=== PATIENT | female | born 1965 | race African-American/Black ===

== ENCOUNTER 2023-08-08 11:45 | Inpatient (IN) | payer MEDICARE, MEDICAID ==
[~2023-08-08] VITALS: Ht 162.6 cm; Wt 51.7 kg
[~2023-08-08 11:45] MED LIST: AMLO10TA80 PO; ASPI-1406 MT; ATOR40TA70 MT; CALC667C MT; CARV25TA47 MT; CHOL100046 PO; HYDR100T26 MT; PANT40TA51 MT; SITA25TA3 MT; [UNRECOGNIZED DRUG - CODE] PO
[2023-08-08] MEDS ORDERED: HYDRALAZINE 20MG/ML VIAL IV ONE (12:15)
[2023-08-08 13:22] LABS: BASOPHILS % 0.7 % (0.0-2.0); EOSINOPHILS % 0.5 % (0.0-5.0); HEMATOCRIT. 38.8 % (36.0-48.0); HEMOGLOBIN. 12.8 g/dL (12.0-16.0); LYMPHOCYTES % 21.9 % (20.0-50.0); MEAN CORPUSCULAR HEMOGLOBIN 32.3 pg (28.0-32.0); MEAN CORPUSCULAR HGB CONC 32.9 g/dL (31.0-37.0); MEAN PLATELET VOLUME 8.3 fl (7.4-10.4); MONOCYTES % 10.2 % (2.0-8.0); NEUTROPHILS % 66.7 % (40.0-76.0); PLATELET 121 x1000/uL (130-400); RED BLOOD CELL COUNT 3.96 mill/uL (4.2-5.4); RED CELL DISTRIBUTION WIDTH 16.6 % (11.6-14.6); WHITE BLOOD COUNT 3.5 x1000/uL (4.5-11.0)
[2023-08-08 13:27] LABS: INR 1.1
[2023-08-08 13:31] LABS: ALANINE AMINOTRANSFERASE < 7 IU/L (10-49); ALBUMIN 3.9 g/dL (3.2-4.8); ASPARTATE AMINOTRANSFERASE 17 IU/L (<34); BILIRUBIN TOTAL 0.4 mg/dL (0.1-1.0); CARBON DIOXIDE 24 mEq/L (21-32); CHLORIDE 101 mEq/L (98-107); GLUCOSE 94 mg/dL (70-105); POTASSIUM 3.4 mEq/L (3.5-5.1); PROTEIN TOTAL 7.8 g/dL (6.0-8.3); SODIUM 136 mEq/L (136-145); UREA NITROGEN BLOOD 13 mg/dL (9-23)
[2023-08-08 13:35] LABS: CREATININE 6.3 mg/dL (0.6-1.0)
[2023-08-08 13:36] LABS: TROPONIN I HIGH SENSITIVITY 60 ng/L (3.0-34)
[2023-08-08] MEDS: MORPHINE SULFATE 4 MG/ML INJ (FOR IV/IM USE) IM ONE (13:49)
[2023-08-08] MEDS: CLONIDINE 0.1MG TABLET PO ONE (14:09)
[2023-08-08] MEDS ORDERED: NITROGLYCERIN OINT 1GM/INCH UDPKT TD ONE (14:15)
[2023-08-08] MEDS: HYDRALAZINE 20MG/ML VIAL IV NR (14:30)
[2023-08-08] MEDS: ONDANSETRON HCL 4MG/2ML INJ IV ONE (14:30)
[2023-08-09] MEDS ORDERED: HYDRALAZINE HCL 10MG TABLET PO PRN (08:30)
[2023-08-09] MEDS: AMLODIPINE 5MG TABLET PO SCH (09:25)
[2023-08-09] MEDS: HYDRALAZINE HCL 100MG TABLET PO SCH (09:25)
[2023-08-09 11:05] LABS: TROPONIN I HIGH SENSITIVITY 72 ng/L (3.0-34)
[2023-08-09] MEDS: ONDANSETRON HCL 4MG/2ML INJ IV PRN (12:02)
[2023-08-09] MEDS: HYDRALAZINE 20MG/ML VIAL IV PRN (12:02)
[2023-08-09 14:50] VITALS: BP 159/96; PULSE 106; RESP 20; TEMP 96.1
[2023-08-09 16:00] VITALS: BP 191/104; PULSE 101; RESP 20; TEMP 97.6
[2023-08-09 17:45] VITALS: BP 169/94
[2023-08-09 18:57] LABS: HEPATITIS A AB IGM NEGATIVE (Negative); HEPATITIS B CORE AB IGM NEGATIVE (Negative); HEPATITIS B SURFACE ANTIGEN NEGATIVE (Negative); HEPATITIS C AB NON REACTIVE (Neg) (Negative)
[2023-08-09 20:00] VITALS: BP 163/82; PULSE 91; RESP 17; TEMP 97.9
[2023-08-10] VITALS (12 sets, daily range): BP systolic 83–165; BP diastolic 48–85; PULSE 77–108; RESP 18–24; TEMP 97.7–98.2
[2023-08-10 06:38] LABS: BASOPHILS % 0.4 % (0.0-2.0); HEMATOCRIT. 43.3 % (36.0-48.0); HEMOGLOBIN. 14.1 g/dL (12.0-16.0); LYMPHOCYTES % 12.3 % (20.0-50.0); MEAN CORPUSCULAR HEMOGLOBIN 32.5 pg (28.0-32.0); MEAN CORPUSCULAR HGB CONC 32.6 g/dL (31.0-37.0); MEAN CORPUSCULAR VOLUME 99.7 fL (81.0-99.0); MEAN PLATELET VOLUME 8.8 fl (7.4-10.4); MONOCYTES % 5.4 % (2.0-8.0); NEUTROPHILS % 81.9 % (40.0-76.0); PLATELET 131 x1000/uL (130-400); RED BLOOD CELL COUNT 4.35 mill/uL (4.2-5.4); RED CELL DISTRIBUTION WIDTH 17.2 % (11.6-14.6)
[2023-08-10 07:00] LABS: CALCIUM 12.6 mg/dL (8.7-10.4); CREATININE 8.9 mg/dL (0.6-1.0); POTASSIUM 4.3 mEq/L (3.5-5.1)
[2023-08-10] MEDS: AMLODIPINE 10MG TABLET PO SCH (09:14)
[2023-08-10] MEDS ORDERED: HYDRALAZINE 20MG/ML VIAL IV PRN (16:45)
[2023-08-10] MEDS ORDERED: HYDRALAZINE HCL 25MG TABLET PO SCH (22:00)
[2023-08-10] MEDS ORDERED: MORPHINE SULFATE 2 MG/ML CPJ (NOT FOR IM USE) IV NR (23:30)
[2023-08-11 00:25] VITALS: BP 156/72; PULSE 90; RESP 18; TEMP 98
[2023-08-11 04:00] VITALS: BP 152/99; PULSE 101; RESP 18; TEMP 98
[2023-08-11 08:00] VITALS: BP 136/99; PULSE 88; RESP 18; TEMP 97.9
[2023-08-11 12:00] VITALS: BP 189/94; PULSE 89; RESP 18; TEMP 96.5
[2023-08-11 16:00] VITALS: BP 145/68; PULSE 82; RESP 18; TEMP 97.7
[2023-08-11 17:53] LABS: HEPATITIS A AB IGM NEGATIVE (Negative); HEPATITIS B CORE AB IGM NEGATIVE (Negative); HEPATITIS B SURFACE ANTIGEN NEGATIVE (Negative); HEPATITIS C AB NON REACTIVE (Neg) (Negative)
[2023-08-11 20:00] VITALS: BP 149/75; PULSE 92; RESP 18; TEMP 97.8
[2023-08-12] VITALS (9 sets, daily range): BP systolic 110–197; BP diastolic 53–85; PULSE 81–100; RESP 16–22; TEMP 96.5–97.8
[2023-08-12] MEDS: CALCIUM CARBONATE 500MG TABLET CHEW PO PRN (01:06)
[2023-08-12 07:16] LABS: BASOPHILS % 0.2 % (0.0-2.0); HEMOGLOBIN. 11.6 g/dL (12.0-16.0); LYMPHOCYTES % 17.6 % (20.0-50.0); MEAN CORPUSCULAR HEMOGLOBIN 32.7 pg (28.0-32.0); MEAN CORPUSCULAR HGB CONC 33.2 g/dL (31.0-37.0); MEAN CORPUSCULAR VOLUME 98.6 fL (81.0-99.0); MEAN PLATELET VOLUME 8.5 fl (7.4-10.4); MONOCYTES % 11.8 % (2.0-8.0); NEUTROPHILS % 70.4 % (40.0-76.0); PLATELET 168 x1000/uL (130-400); RED BLOOD CELL COUNT 3.55 mill/uL (4.2-5.4); RED CELL DISTRIBUTION WIDTH 17.2 % (11.6-14.6); WHITE BLOOD COUNT 4.1 x1000/uL (4.5-11.0)
[2023-08-12 07:32] LABS: CALCIUM 11.8 mg/dL (8.7-10.4); POTASSIUM 4.3 mEq/L (3.5-5.1)
[2023-08-12 07:35] LABS: CREATININE 8.4 mg/dL (0.6-1.0)
[2023-08-12] MEDS: ISOSORBIDE DINITRATE 20MG TABLET PO SCH (18:45)
[2023-08-12] MEDS: CARVEDILOL 6.25 MG TABLET PO SCH (21:17)
[2023-08-13] VITALS (9 sets, daily range): BP systolic 112–184; BP diastolic 54–79; PULSE 74–99; RESP 18–20; TEMP 96.9–98
[2023-08-13] MEDS: ACETAMINOPHEN 325MG TABLET PO PRN (18:13)
[2023-08-14] VITALS (7 sets, daily range): BP systolic 128–149; BP diastolic 54–71; PULSE 73–85; RESP 17–20; TEMP 97.1–98.4; O2SAT 100
[2023-08-15] VITALS: BP 149/62; PULSE 74; RESP 17; TEMP 97.5
[2023-08-15 04:00] VITALS: BP 154/63; PULSE 82; RESP 19; TEMP 97.8
[2023-08-15 07:48] LABS: HEMOGLOBIN. 10.8 g/dL (12.0-16.0); MEAN CORPUSCULAR HGB CONC 34.7 g/dL (31.0-37.0); MEAN CORPUSCULAR VOLUME 97.9 fL (81.0-99.0); MEAN PLATELET VOLUME 8.6 fl (7.4-10.4); PLATELET 173 x1000/uL (130-400); RED BLOOD CELL COUNT 3.17 mill/uL (4.2-5.4); RED CELL DISTRIBUTION WIDTH 16.8 % (11.6-14.6); WHITE BLOOD COUNT 4.4 x1000/uL (4.5-11.0)
[2023-08-15 07:52] LABS: DIFFERENTIAL COMMENT 1
[2023-08-15 08:00] VITALS: BP_SYST 133; BP_SYST 161; BP_DIAS 68; BP_DIAS 76; PULSE 73; PULSE 76; RESP 20; TEMP 97.6; TEMP 98.6
[2023-08-15 08:56] LABS: CALCIUM 9.7 mg/dL (8.7-10.4); POTASSIUM 4.6 mEq/L (3.5-5.1)
[2023-08-15 12:00] VITALS: BP 132/46; PULSE 80; RESP 20; TEMP 97.6
[2023-08-15 16:36] LABS: ANISOCYTOSIS 1+; PLATELET ESTIMATE NORMAL
[2023-08-15 17:22] LABS: HEPATITIS A AB IGM NEGATIVE (Negative); HEPATITIS B CORE AB IGM NEGATIVE (Negative); HEPATITIS B SURFACE ANTIGEN NEGATIVE (Negative); HEPATITIS C AB NON REACTIVE (Neg) (Negative)
== END 2023-08-15 18:12 | disposition home or self-care (01) | DRG 291 ==
LOC: ER 12:22 → 8WST 14:43 → EDBEDREQ 14:46 → ENRESERV 08-09 14:24
PROVIDERS: ADMIT Internal Medicine; ATTEND Internal Medicine
PROC: 5A1D70Z Performance of Urinary Filtration, Intermittent, Less than 6 Hours Per Day (ICD-10-PCS; principal; 2023-08-10)
PROC: 5A1D70Z Performance of Urinary Filtration, Intermittent, Less than 6 Hours Per Day (ICD-10-PCS; 2023-08-12)
PROC: 5A1D70Z Performance of Urinary Filtration, Intermittent, Less than 6 Hours Per Day (ICD-10-PCS; 2023-08-13)
DX: I13.2 Hypertensive heart and chronic kidney disease with heart failure and with stage 5 chronic kidney disease, or end stage renal disease (principal); G93.41 Metabolic encephalopathy; I50.33 Acute on chronic diastolic (congestive) heart failure; N18.6 End stage renal disease; E46 Unspecified protein-calorie malnutrition; I16.1 Hypertensive emergency; Z68.1 Body mass index [BMI] 19.9 or less, adult; I27.20 Pulmonary hypertension, unspecified; Z99.2 Dependence on renal dialysis; E11.22 Type 2 diabetes mellitus with diabetic chronic kidney disease; R10.9 Unspecified abdominal pain; Z20.822 Contact with and (suspected) exposure to COVID-19; R13.10 Dysphagia, unspecified; G89.29 Other chronic pain; E87.6 Hypokalemia; E83.52 Hypercalcemia; E78.5 Hyperlipidemia, unspecified; D72.819 Decreased white blood cell count, unspecified; Z95.810 Presence of automatic (implantable) cardiac defibrillator; Z89.511 Acquired absence of right leg below knee; Z82.49 Family history of ischemic heart disease and other diseases of the circulatory system; Z88.1 Allergy status to other antibiotic agents; Z88.5 Allergy status to narcotic agent
CPT/HCPCS: 36415; 71045; 71250; 74176; 80048; 80053; 83880; 84484; 85025; 86705; 86709; 87340; 87426; 90935; 92610; 93005; 93306; 97162; 99291; J0360; J2270; J2405